=== PATIENT | female | born 1940 | race Caucasian/White ===

== ENCOUNTER → 2016-09-20 | Outpatient (CLI) | payer MEDICARE, BC ==
--- NOTE | 2016-09-20 14:15 | RADRPT ---
PROCEDURE: XR right hip. CLINICAL INDICATION: Hip pain TECHNIQUE: Two views are available for review. COMPARISON: 12/23/2014 FINDINGS: ORIF of right hip with an intramedullary helen and dynamic compression pin. There is no evidence of lo osening of the prosthesis. There is no evidence of hardware failure. There is normal mineralization , architecture and alignment. No acute fractures are identified. No osseous lesions are present. The joints are unremarkable. The soft tissues are unremarkable. 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 IMPRESSION: ORIF of right hip with an intramedullary helen and a dynamic compression pin Otherwise an unremarkable examination RPTAT: [facility] .David Marsh MD, MD Date Time Electronically viewed and signed by .David Marsh MD, on 09/20/2016 14:15 .B/
== END | disposition home or self-care (01) ==
LOC: HKI 13:49
PROVIDERS: ATTEND Orthopaedic Surgery
DX: M25.551 Pain in right hip (principal); M70.61 Trochanteric bursitis, right hip
CPT/HCPCS: 73502; G0463